=== PATIENT | male | born 1980 | race Caucasian/White ===

== ENCOUNTER 2021-11-05 22:51 | Emergency (ER) | payer OTHER | END 2021-11-06 06:50 | disposition home or self-care (01) | LOC: ER1 22:51 | PROVIDERS: Family Medicine | DX: F41.9 Anxiety disorder, unspecified (principal); F22 Delusional disorders; Z20.822 Contact with and (suspected) exposure to COVID-19 | CPT/HCPCS: 80307; 81001; 99283; U0002 ==